=== PATIENT | male | born 1990 | race Caucasian/White ===

== ENCOUNTER 2016-10-18 15:40 | Inpatient (IN) | payer OTHER ==
--- NOTE | ~2016-10-18 | PN ---
Unit #: [id number] #: [id number] Patient: SONJA RASHID [id number] [facility] [address] [place] [address] [id number] MR#: [id number] NAME: SONJA RASHID ROOM: [facility] Age: 26 Sex: M Admission Date: 10/18/2016 : 1990 Attending Physician: Malu Huertas M.D. Admitting Physician: Malu Huertas M.D. Primary Care Physician: Primary Care Physician Estefani RODGERS PROGRESS NOTES DATE 10/20/2016 DISCUSSION Mr. Rashid is a 26-year-old, white male who was seen today and chart was reviewed and case was discussed with the staff. He remains in acute distress and discomfort as he is detoxing. Meanwhile, he has been cooperative with treatment recommendations. He has been taking medications and tolerating them fairly well with no reported side effects. MENTAL STATUS EXAM Young white male who was casually dressed with fair personal hygiene, appears to be in no acute distress or discomfort. He was awake and alert on interaction with intact orientation. His mood was anxious with congruent affect. His speech was slow and restricted in content. He denies any suicidal or homicidal ideation. His insight and judgement remains slightly impaired. TREATMENT PLAN 1. We will continue him on his current medications and treatment protocol. We will monitor his response and make further adjustments as needed. 2. We will continue to follow up. Dictated by... Francisca Acosta/ronda TD: 10/22/2016 00:14 JOB #: [id number] Unit #: [id number] #: [id number] Patient: SONJA RASHID PROGRESS NOTES Page 1 of 1 X Malu Huertas MD PROGRESS NOTE
--- NOTE | ~2016-10-18 | PN ---
Unit #: [id number] #: [id number] Patient: SONJA RASHID [id number] [facility] [address] [place] [address] [id number] MR#: [id number] NAME: SONJA RASHID ROOM: 74 Age: 26 Sex: M Admission Date: 10/18/2016 : 1990 Attending Physician: Malu Huertas M.D. Admitting Physician: Malu Huertas M.D. Primary Care Physician: Primary Care Physician Estefani PATINO NOTES DATE OF SERVICE 10/17/2016 DISCUSSION Mr. Rashid is a 26-year-old white male who was seen today. Chart was reviewed and case was discussed with staff. He appears to be anxious, withdrawn, unkempt, disheveled, and in distress and discomfort, and rather seclusive to himself. Meanwhile, he has been cooperative with the treatment recommendations and has been taking the medications and tolerating them fairly well with no reported side effects. MENTAL STATUS EXAMINATION Young white male who is casually dressed with marginal personal hygiene, appears to be in distress or discomfort. He was awake and alert with impaired attention and concentration. His mood is anxious with congruent affect. His speech is slow and restricted in content. His thought processes were disorganized with some looseness of association. He denied any suicidal or homicidal ideations and also denies any auditory or visual hallucinations. His insight and judgment remain slightly impaired. TREATMENT PLAN 1. We will continue him on his current medications and treatment protocol. We will monitor his response to the medications and make further adjustments as needed. 2. We will continue to follow up. Dictated by... Francisca Acosta/madison TD: 10/19/2016 15:15 JOB #: [id number] Unit #: [id number] #: [id number] Patient: SONJA RASHID PEAJERRICA PROGRESS NOTES Page 1 of 1 X Malu Huertas MD PROGRESS NOTE
--- NOTE | ~2016-10-18 | DS ---
Unit #: [id number] #: [id number] Patient: SONJA RASHID [id number] [facility] [address] [place] [address] [id number] MR#: [id number] NAME: SONJA RASHID ROOM: [facility] Age: 26 Sex: M Admission Date: 10/18/2016 : 1990 Discharge Date: 10/22/2016 Attending Physician: Malu Huertas M.D. Primary Care Physician: Primary Care Physician No DISCHARGE SUMMARY IDENTIFYING DATA Mr. Rashid is a 26-year-old single white male, who is resident of [place], [place], and was self-referred to the hospital on a voluntary basis. DISCHARGE DIAGNOSES Psychiatric: Opioid dependence, moderate and acute withdrawals; opioid-induced mood disorder. Medical: None. Stressors: Moderate psychosocial stressors. HISTORY OF PRESENT ILLNESS Please see initial psychiatric evaluation for details. PAST PSYCHIATRIC HISTORY Please see initial psychiatric evaluation for details. PAST MEDICAL HISTORY Please see initial psychiatric evaluation for details. HOSPITAL COURSE The patient was admitted to the adult chemical dependency unit at [facility] and was oriented to the hospital environment. Routine p.r.n. medications were initiated, and he was started back on his home medications and medications were adjusted and he was closely monitored. He was taking the medications regularly and was tolerating them fairly well and was able to show a decent therapeutic response and was willing to continue treatment on an outpatient basis and as such, it was decided that he will be discharged home and will continue treatment. DISCHARGE MEDICATIONS None. DISCHARGE CONDITION Stable. PROGNOSIS Fair. Dictated by... Malu Huertas M.D. IAA/modl Unit #: [id number] #: [id number] Patient: SONJA RASHID TD: 10/22/2016 06:49 JOB #: [id number] DISCHARGE SUMMARY Page 1 of 1 X Malu Huertas MD X DISCHARGE SUMMARY
--- NOTE | ~2016-10-18 | HP ---
Unit #: [id number] #: [id number] Patient: SONJA ENGEL [id number] [place] [address] [id number] MR#: [id number] NAME: SONJA ENGEL ROOM: P174 Age: 26 Sex: M Admission Date: 10/18/2016 : 1990 Attending Physician: Malu Huertas M.D. Admitting Physician: Malu Huertas M.D. Primary Care Physician: Primary Care Physician No HISTORY AND PHYSICAL HISTORY OF PRESENT ILLNESS Sonja is a 26 year old admitted to [facility] because of his polysubstance abuse which includes IV heroin and methamphetamine. PAST MEDICAL HISTORY Long history of illicit substance abuse to include IV drugs. PAST SURGICAL HISTORY T and A. ALLERGIES No known drug allergies. SOCIAL HISTORY He smokes 1 pack per day. Denies alcohol. Admits to a long history of illicit substance abuse to include IV heroin and IV meth. FAMILY HISTORY Medically noncontributory. REVIEW OF SYSTEMS CONSTITUTIONAL: No fever or chills. HEENT: Denies any sore throat, ear pain or runny nose. CARDIOVASCULAR: Denies chest pain, irregular heart rhythm or palpitations. CHEST: Denies shortness of breath or cough. No hemoptysis. GASTROINTESTINAL: Denies nausea, vomiting, diarrhea or chronic constipation. ENDOCRINE: Denies history of increased thirst or urination. No recent significant weight loss or gain. GENITOURINARY: Denies dysuria, frequency, or hematuria. SKIN: Denies any rashes. HEMATOLOGIC: Denies history of increased bleeding or bruising. MUSCULOSKELETAL: Denies any hot, swollen joints. No generalized muscle pain. NEUROLOGIC: Denies problems with vision or speech. No frequent, severe headaches. No numbness, tingling or weakness in any extremities. Denies loss of bladder or bowel control. CURRENT MEDICATIONS Detox protocol. PHYSICAL EXAMINATION GENERAL: Alert, well-nourished, in no apparent distress. Unit #: [id number] #: [id number] Patient: SONJA ENGEL VITAL SIGNS: Blood pressure 118/68, heart rate 78, respirations 16, temperature 98.6. WEIGHT: 175. HEIGHT: 6 feet 0 inches. SKIN: Warm and dry without rash or lesion. HEENT: Normocephalic. TMs not viewed. Oral and nasal passages clear. Conjunctivae clear. PERRLA. EOMs intact. NECK: Supple without lymphadenopathy or thyromegaly. HEART: Regular rate and rhythm without murmur. LUNGS: Clear. ABDOMEN: Soft, nontender. : Not done. EXTREMITIES: No evidence of cyanosis, clubbing or edema. Moves all without focal deficit. NEUROLOGICAL: Grossly within normal limits. Cranial Nerves: II: Visual victor are intact. III, IV AND : Extraocular movements are intact. Pupils are equal, round and reactive to light. V: Facial sensation is grossly normal. VII: Facial movements and expression are normal. VIII: Auditory acuity grossly intact. IX, X: Uvula is midline. Phonation is normal. XI: Patient shrugs shoulders and turns head normally. XII: Tongue protrudes in the midline. Sensory and Motor Function: Sensory and motor sensation is grossly normal. Motor: moves all extremities well. Coordination: Gait is normal. Deep Tendon Reflexes: Intact. IMPRESSION Psychiatric admission. RECOMMENDATIONS PSYCHIATRIC: Per psychiatrist. MEDICAL: 1. See no contraindication to participate in facility's activities. 2. Detox per protocol. MEDICAL PROGNOSIS Good. MEDICAL CONDITION Stable. Dictated by... Elizabeth Ortega PNeryAAnh. for Francisca Frazier/juan david TD: 10/19/2016 17:20 JOB #: [id number] Unit #: [id number] #: [id number] Patient: SONJA ENGEL HISTORY AND PHYSICAL Page 1 of 1 X Elizabeth Ortega HISTORY AND PHYSICAL
--- NOTE | ~2016-10-18 | PN ---
Unit #: [id number] #: [id number] Patient: SONJA RASHID [id number] [facility] [address] [place] [address] [id number] MR#: [id number] NAME: SONJA RASHID ROOM: [facility] Age: 26 Sex: M Admission Date: 10/18/2016 : 1990 Attending Physician: Malu Huertas M.D. Admitting Physician: Malu Huertas M.D. Primary Care Physician: Primary Care Physician Estefani RODGERS PROGRESS NOTES DATE 10/21/2016 DISCUSSION Mr. Rashid is a 26-year-old, white male with substance abuse and mood disorder who was seen today and chart was reviewed and case was discussed with the staff who reports the patient has been getting restless and once again has been wanting to leave and has a typical pattern of his presentation. Meanwhile, he has not shown any agitation or aggression. MENTAL STATUS EXAM Young white male who was casually dressed with fair personal hygiene, appears to be in no acute distress or discomfort. He was awake and alert on interaction with intact orientation. His mood was anxious with congruent affect. He denies any suicidal or homicidal ideation. His insight and judgement remains slightly impaired. TREATMENT PLAN 1. We will continue him on his current medications and treatment protocol. We will monitor his response to the medication and make further adjustments as needed. 2. We will continue to follow up. Dictated by... Francisca Acosta/ronda TD: 10/22/2016 04:26 JOB #: [id number] Unit #: [id number] #: [id number] Patient: SONJA RASHID ANA MARIA PROGRESS NOTES Page 1 of 1 X Malu Huertas MD PROGRESS NOTE
--- NOTE | ~2016-10-18 | PA ---
Unit #: [id number] #: [id number] [facility]: [facility] [id number] [facility] [address] [place] [address] [id number] I MR#: [id number] NAME: SONJA RASHID ROOM: P174 Age: 26 Sex: M Admission Date: 10/18/2016 : 1990 Date of Assessment: 10/19/2016 Attending Physician: Malu Huertas M.D. Admitting Physician: Malu Huertas M.D. Primary Care Physician: Primary Care Physician No PSYCHIATRIC ASSESSMENT IDENTIFYING DATA Mr. Rashid is a 26-year-old, single, white male, who is a resident of [place], [place], and was self-referred to the hospital on a voluntary basis. CHIEF COMPLAINT "I've been here several times and I want the inpatient detox." HISTORY OF PRESENT ILLNESS Mr. Rashid is a 26-year-old white male with a history of opioid dependance who is known to us from previous encounter, was self-referred to the hospital. Upon presentation, he had a COWS score of 15 indicating significant withdrawal symptoms and he stated, "I know this addiction is going to get worse and worse, and it will cause more problems if I don't get help now." He reports significant withdrawal symptoms including nausea, stomach cramps, headaches, vomiting, and reports increasing depression, anxiety, irritability, and inability to function on his own on a daily basis and inability to perform activities of daily living, and does report feelings of hopelessness and helplessness, but denies any suicidal ideations, intent, or plan. SUBSTANCE ABUSE HISTORY The patient reports extensive history of substance abuse and dependence including experimentation with alcohol, cannabis, opioids, and amphetamines, and currently he reports that he has been using IV heroin and IV methamphetamine on a daily basis. PAST PSYCHIATRIC HISTORY The patient has had a history of inpatient [facility]. Review of the medical records indicate that currently he is not active in any treatment program, is not seeing a psychiatrist, and is not taking any psychotropic medications. PAST MEDICAL HISTORY No acute or chronic medical illnesses. ALLERGIES No known medication allergies. PERSONAL AND SOCIAL HISTORY A 26-year-old white male, who reports that he is single, unemployed, and lives in a [place] and has poor social support system. Unit #: [id number] #: [id number] Patient: SONJA RASHID MENTAL STATUS EXAMINATION Young white male, who was casually dressed with a fair personal hygiene, appears to be in no acute distress or discomfort. He was awake and alert on interaction with intact orientation to time, place, and person. His mood was anxious and depressed with a congruent affect. His speech was slow and restricted in content. His thought processes were disorganized with some looseness of associations and he denies any suicidal or homicidal ideations. His insight and judgment remain significantly impaired. DIAGNOSTIC IMPRESSION Psychiatric: 1. Opioid dependence, moderate and acute withdrawal. 2. Opioid-induced mood disorder. Medical: None. Stressors: Moderate psychosocial stressors. TREATMENT PLAN 1. The patient has presented with a history of mood disorder and substance abuse and has been decompensating and will need inpatient hospitalization for detoxification, safety, and stabilization. We will start him back on his home medications. We will adjust the medications and monitor response. 2. Supportive therapy was provided to the patient. ESTIMATED LENGTH OF STAY 4 to 5 days. ABILITY TO HELP SELF Limited. WILLINGNESS TO HELP SELF The patient appears to be willing to help self. STRENGTHS 1. Communicative. 2. Cooperative. PROBLEMS 1. Chronic dysphoric symptoms. 2. Chronic chemical dependency. 3. Poor social support system. DISCHARGE CRITERIA This will be contingent upon the patient's ability to go through detox without having any significant withdrawal symptoms and his ability to stay safe to himself, particularly after discharge from the hospital. Dictated by... Francisca Acosta/pily TD: 10/19/2016 06:45 JOB #: [id number] Unit #: [id number] #: [id number] Patient: SONJA RASHID PSYCHIATRIC ASSESSMENT Page 1 of 1 X Malu Huertas MD X PSYCHIATRIC ASSESSMENT
[2016-10-19 09:35] LABS: URINE APPEARANCE CLEAR; URINE BILIRUBIN NEG (NEG); URINE BLOOD NEG (NEG); URINE COLOR YELLOW; URINE GLUCOSE NEG (NEG); URINE KETONE NEG (NEG); URINE LEUKOCYTE ESTERASE NEG (NEG); URINE NITRATE NEG (NEG); URINE PROTEIN NEG (NEG); URINE SPECIFIC GRAVITY 1.011 (1.003-1.035)
[2016-10-19 09:39] LABS: BASOPHIL% 0.5 % (0-2.5); EOSINOPHIL# 0.3 X10e3 (0-0.7); EOSINOPHIL% 4.2 % (0.0-7.0); HEMATOCRIT 40.9 % (38.0-50.0); HEMOGLOBIN 13.4 gm/dL (13.0-16.0); LYMPHOCYTE# 2.2 X10e3 (1.0-3.5); LYMPHOCYTE% 30.7 % (17.0-45.0); MEAN CELL VOLUME 82.4 FL (83-96); MEAN CORPUSCULAR HGB CONC 32.7 g/dL (30-36); MEAN PLATELET VOLUME 10.1 FL (6.5-11.5); MONOCYTE# 0.7 X10e3 (0-1.0); MONOCYTE% 9.3 % (3.0-12.0); NEUTROPHIL# 3.9 X10e3 (1.5-7.1); NEUTROPHIL% 55.3 % (40-75); RED BLOOD COUNT 4.97 X10e (3.90-5.60); RED CELL DISTRIBUTION WIDTH 14.3 % (11.0-15.5); WHITE BLOOD COUNT 7.1 X10e3 (4.0-10.5)
[2016-10-19 09:58] LABS: ALBUMIN SERUM 3.3 g/dL (3.5-5.0); BILIRUBIN,TOTAL 0.4 mg/dL (0.2-2.0); BUN/CREATININE RATIO 16.25; CALCIUM SERUM 8.8 mg/dL (8.4-10.2); CREATININE SERUM 0.8 mg/dL (0.6-1.4); GLOM FILT RATE Estimated 125.1 mL/min (>60); POTASSIUM 4.6 mmol/L (3.5-5.1); PROTEIN TOTAL SERUM 5.9 g/dL (6.0-8.3)
[2016-10-19 10:11] LABS: DIFF IND NO; PLATELET COUNT 196 X10e3 (140-420)
[2016-10-19 10:15] LABS: AMPHETAMINE POS (NEG); BARBITURATES NEG (NEG); BENZODIAZEPINES NEG (NEG); COCAINE NEG (NEG); MARIJUANA NEG (NEG); OPIATES POS (NEG); TRICYCLIC ANTIDEPRESSANTS NEG (NEG); U METHADONE NEG (NEG)
== END 2016-10-22 09:39 | disposition home or self-care (01) | DRG 897 ==
LOC: P1E 15:40
PROVIDERS: Psychiatry & Neurology Psychiatry
PROC: HZ2ZZZZ Detoxification Services for Substance Abuse Treatment (ICD-10-PCS; principal; 2016-10-18)
DX: F11.23 Opioid dependence with withdrawal (principal); F11.24 Opioid dependence with opioid-induced mood disorder; F15.10 Other stimulant abuse, uncomplicated
CPT/HCPCS: 80053; 80307; 81003; 85025; 86592